=== PATIENT | male | born 1955 | race Caucasian/White ===

== ENCOUNTER 2017-02-19 13:03 | Inpatient (IN) | payer OTHER ==
--- NOTE | 2017-02-19 20:05 | HP ---
COWS - Scale Resting Pulse: 0= [place] 80 or Below Sweatin=Flushed/Facial Moisture Restless Observation: 3= Extraneous Movement Pupil Size: 0= Normal to Room Light Bone or Joint Aches: 2= Severe Diffuse Aches Runny Nose/ Eye Tearin= Runny Nose/Eyes GI Upset > 30mins: 2= Nausea/Diarrhea Tremor Observation: 2= Slight Tremor Visible Yawning Observation: 1= 1-2x During Session Anxiety or Irritability: 2=Irritable/Anxious Goose Flesh Skin: 3=Piloerection COWS Score: 19 Admission ROS S - HPI Chief Complaint: WITHDRAWAL SYMPTOMS Allergies/Adverse Reactions: Allergies Allergy/AdvReac Type Severity Reaction Status Date / Time No Known Allergies Allergy Verified 07/31/16 17:37 History of Present Illness: 61 Y.O. MAN WITH AN EXTENSIVE HISTORY OF OPIOID DEPENDENCE IS HERE SEEKING DETOX. HE HAS BEEN IN [facility] PREVIOUSL[facility] FOR DETOX AND REHAB AND HE WAS LAST HERE IN 10/2016 BUT LEFT AMA. Exam Limitations: No Limitations - Ebola screening Have you traveled outside of the country in the last 21 days: No Have you had contact with anyone from an Ebola affected area: No Have you been sick,other than usual withdrawal symptoms: No - Review of Systems Constitutional: Chills, Diaphoresis, Loss of Appetite, Malaise, Night Sweats, Unintentional Wgt. Loss EENT: reports: Blurred Vision, Tearing, Nose Congestion Respiratory: reports: No Symptoms reported Cardiac: reports: No Symptoms Reported GI: reports: Diarrhea, Nausea, Poor Appetite : reports: No Symptoms Reported Musculoskeletal: reports: Back Pain Integumentary: reports: No Symptoms Reported Neuro: reports: Tremors Endocrine: reports: No Symptoms Reported Hematology: reports: No Symptoms Reported Psychiatric: reports: Orientated x3, Depressed Other Systems: Reviewed and Negative Patient History - Patient Medical History Hx Anemia: Yes Hx Asthma: Yes (ON MDI) Hx Chronic Obstructive Pulmonary Disease (COPD): Yes Hx Cancer: No Hx Cardiac Disorders: No Hx Congestive Heart Failure: No Hx Hypertension: No Hx Hypercholesterolemia: No Hx Pacemaker: No HX Cerebrovascular Accident: No Hx Seizures: No Hx Dementia: No Hx Diabetes: No Hx Gastrointestinal Disorders: No Hx Liver Disease: No Hx Genitourinary Disorders: No Hx Sexually Transmitted Disorders: No Hx Renal Disease (ESRD): No Hx Thyroid Disease: No Hx Human Immunodeficiency Virus (HIV): No (NEGATIVE HX) Hx Hepatitis C: Yes ([place] BUT "I THINK IT CAME BACK".) Hx Depression: Yes Hx Suicide Attempt: No Hx Bipolar Disorder: No Hx Schizophrenia: No - Patient Surgical History Past Surgical History: No Hx Neurologic Surgery: No Hx Cataract Extraction: No Hx Cardiac Surgery: No Hx Lung Surgery: No Hx Breast Surgery: No Hx Breast Biopsy: No Hx Abdominal Surgery: No Hx Appendectomy: No Hx Cholecystectomy: No Hx Genitourinary Surgery: No Hx Section: No Hx Orthopedic Surgery: No Anesthesia Reaction: No - PPD History Previous Implant?: Yes Documented Results: Negative w/proof Implanted On Prior [facility] Admission?: Yes Date: 05/02/16 Results: 0 MM PPD to be Administered?: No - Reproductive History Patient is a Female of Child Bearing Age (11 -55 yrs old): No - Smoking Cessation Smoking history: Current every day smoker Have you smoked in the past 12 months: Yes Aproximately how many cigarettes per day: 5 Cigars Per Day: 0 Hx Chewing Tobacco Use: No Initiated information on smoking cessation: Yes 'Breaking Loose' booklet given: 02/19/17 - Substance & Tx. History Hx Alcohol Use: No Hx Substance Use: Yes Substance Use Type: Heroin Hx Substance Use Treatment: Yes - Substances Abused Heroin Route: Injection Frequency: Daily Amount used: 1 BUNDLE Age of first use: 13 Date of Last Use: 02/18/17 Family Disease History - Family Disease History Family Disease History: Heart Disease: Father (STROKE ), CA: Mother ( LUNG ), Sister (LEUKEMIA ) Admission Physical Exam S - Vital Signs Vital Signs: Vital Signs - 24 hr 02/19/17 18:28 Temperature 97.0 F L Pulse Rate 68 Respiratory 20 Rate Blood Pressure 146/73 - Physical General Appearance: Yes: Disheveled, Thin, Tremorous, Anxious HEENTM: Yes: Hearing grossly Normal, Normocephalic, Normal Voice Respiratory: Yes: Lungs Clear, Normal Breath Sounds, No Respiratory Distress, No Accessory Muscle Use Breast: Yes: Breast Exam Deferred Cardiology: Yes: Regular Rate Abdominal: Yes: Flat, Soft Genitourinary: Yes: Other (NO COMPLAINTS REPORTED) Back: Yes: Normal Inspection Musculoskeletal: Yes: Back pain Extremities: Yes: Tremors Neurological: Yes: barrel cap setter II-XII NML intact, Fully Oriented, Alert, Normal Mood/ Affect, Normal Response Integumentary: Yes: Track French Lymphatic: Yes: Within Normal Limits - Diagnostic (1) COPD (chronic obstructive pulmonary disease) Current Visit: Yes Status: Chronic Qualifiers: COPD type: emphysema Emphysema type: panlobular Qualified Code(s ): J43.1 - Panlobular emphysema (2) Hepatitis C Current Visit: Yes Status: Chronic Qualifiers: Viral hepatitis chronicity: chronic Hepatic coma status: without hepatic coma (3) History of asthma Current Visit: Yes Status: Chronic (4) Opioid dependence with withdrawal Current Visit: Yes Status: Chronic (5) Weight loss Current Visit: Yes Status: Suspected Cleared for Admission S - Detox or Rehab [facility] Level of Care: Medically Managed Detox Regimen/Protocol: Methadone BHS Breath Alcohol Content Breath Alcohol Content: 0 Urine Drug Screen - Results Drug Screen Negative: No Urine Drug Screen Results: OPI-Opiates, BZO-Benzodiazepines
[2017-02-19] MEDS ORDERED: LOPERAMIDE HCL 2 MG CAPSULE PO PRN (20:18)
[2017-02-19] MEDS ORDERED: MAGNESIUM HYDROX 2400MG/30ML ORAL SUSPENSION 30 ML CUP PO PRN (20:18)
[2017-02-19] MEDS ORDERED: ACETAMINOPHEN 325 MG TABLET (FP) PO PRN (20:18)
[2017-02-19] MEDS ORDERED: MENTHOL/PHENOL 1 EACH UD MM PRN (20:18)
[2017-02-19] MEDS ORDERED: MAGNESIUM CITRATE 300 ML BOTTLE PO PRN (20:18)
[2017-02-19] MEDS ORDERED: guaiFENesin/D-METHORPHAN HB 10 ML UNIT-DOSE CUPS PO PRN (20:18)
[2017-02-19] MEDS ORDERED: P-EPHED 60MG/TRIPROLIDI 2.5MG TABLET PO PRN (20:18)
[2017-02-19] MEDS ORDERED: IBUPROFEN 400 MG TABLET (FP) PO PRN (20:18)
[2017-02-19] MEDS ORDERED: MAG HYDROX/AL HYDROX/SIMETH 30 ML UNIT-DOSE CUP PO PRN (20:18)
[2017-02-19] MEDS ORDERED: hydrOXYzine PAMOATE 50 MG CAPSULE (FP) PO PRN (20:18)
[2017-02-19] MEDS ORDERED: METHADONE HCL 10 MG TABLET (FOR DETOX USE ONLY) PO ONE ×2 (20:18→23:00)
[2017-02-19] MEDS ORDERED: ALBUTEROL SO4 6.7 GM HFA INHALER IH PRN (20:19)
[2017-02-19] MEDS ORDERED: METHADONE HCL 10 MG TABLET (FOR DETOX USE ONLY) ONE (22:34)
[2017-02-19] MEDS: diazePAM 5 MG TABLET PO PRN (22:44)
[2017-02-19] MEDS: THIAMINE HCL 100 MG TABLET (FP) PO SCH (22:48)
[2017-02-19 23:04] LABS: URINE APPEARANCE CLEAR; URINE BILIRUBIN NEGATIVE (NEGATIVE); URINE BLOOD NEGATIVE (NEGATIVE); URINE COLOR AMBER; URINE GLUCOSE (UA) NEGATIVE (NEGATIVE); URINE KETONE TRACE (NEGATIVE); URINE LEUK ESTERASE NEGATIVE (NEGATIVE); URINE NITRITE NEGATIVE (NEGATIVE); URINE UROBILINOGEN 2.0 E.U/dl E.U./dl (0.2-1.0)
[2017-02-19 23:07] LABS: URINE PROTEIN 1+ (NEGATIVE)
[2017-02-19 23:10] LABS: URINE MUCUS RARE; URINE RBC 8 /hpf (0-3); URINE WBC <1 /hpf (3-5)
[2017-02-20] MEDS: diazePAM 5 MG TABLET PO PRN ×6 (02:51→23:36)
[2017-02-20] MEDS ORDERED: METHADONE HCL 10 MG TABLET (FOR DETOX USE ONLY) PO ONE (10:00)
[2017-02-20] MEDS: PRENATAL VITAMINS W/ FOLIC ACID TABLET (FP) PO SCH (10:14)
[2017-02-20] MEDS: NICOTINE 14 MG/24 HOURS TOPICAL PATCH TD SCH (10:15)
[2017-02-20] MEDS: NICOTINE POLACRILEX 2 MG GUM BC PRN (10:17)
[2017-02-20 10:28] LABS: MCH 28.8 pg (25.7-33.7); MCHC 33.8 g/dl (32.0-35.9); MEAN CELL VOLUME 85.2 fl (80-96); MEAN PLT VOLUME 7.7 fl (7.5-11.1); PLATELET COUNT 278 K/MM3 (134-434); WHITE BLOOD COUNT 7.4 K/mm3 (4.0-10.0)
[2017-02-20 10:50] LABS: ALBUMIN 4.2 g/dl (3.4-5.0); ALK PHOS 96 U/L (45-117); ANION GAP 12 (8-16); BILIRUBIN,TOTAL 1.2 mg/dL (0.2-1.0); CALCIUM 9.4 mg/dL (8.5-10.1); CO2 27 mmol/L (21-32); COCKROFT - GAULT 85.1; CREATININE 0.9 mg/dL (0.7-1.3); GLUCOSE,RANDOM 96 mg/dL (74-106); SGOT/AST 21 U/L (15-37); SGPT/ALT 17 U/L (12-78); TOT PROT 8.1 g/dl (6.4-8.2)
[2017-02-20] MEDS: ACLIDINIUM BROMIDE 400 MCG/INH AERO.POWD IH SCH ×2 (12:00→22:12)
[2017-02-20] MEDS: CYCLOBENZAPRINE HCL 10 MG TABLET (FP) PO PRN ×2 (15:07→23:36)
[2017-02-20] MEDS ORDERED: POTASSIUM CHLORIDE TABS 20 MEQ TABLET.ER (FP) PO ONE (16:03)
--- NOTE | 2017-02-20 16:03 | PN ---
BHS COWS - Scale Resting Pulse: 1= [place] 81-100 Sweatin=Flushed/Facial Moisture Restless Observation: 1= Difficult to Sit Still Pupil Size: 0= Normal to Room Light Bone or Joint Aches: 2= Severe Diffuse Aches Runny Nose/ Eye Tearin= Nasal Congestion GI Upset > 30mins: 3= Vomiting/Diarrhea Tremor Observation of Outstretched Hands: 2= Slight Tremor Visible Yawning Observation: 1= 1-2x During Session Anxiety or Irritability: 2=Irritable/Anxious Goose Flesh Skin: 0=Smooth Skin COWS Score: 15 BHS Progress Note (SOAP) Subjective: Back Ache, Body aches, Sweating, Hot / Cold Sensations, Vomiting, Diarrhea. Objective: PT. A & O X 3, OBSERVED AMBULATING ON UNIT. PT. DENIES CHEST PAIN. 02/20/17 16:01 Vital Signs Temperature 97.2 F L 02/20/17 13:23 Pulse Rate 77 02/20/17 13:23 Respiratory Rate 18 02/20/17 13:23 Blood Pressure 116/68 02/20/17 13:23 O2 Sat by Pulse Oximetry (%) Laboratory Last Values WBC 7.4 K/mm3 (4.0-10.0) D 02/20/17 07:40 RBC 5.07 M/mm3 (4.00-5.60) 02/20/17 07:40 Hgb 14.6 GM/dL (11.7-16.9) D 02/20/17 07:40 Hct 43.2 % (35.4-49) 02/20/17 07:40 MCV 85.2 fl (80-96) 02/20/17 07:40 MCHC 33.8 g/dl (32.0-35.9) 02/20/17 07:40 RDW 14.0 % (11.9-15.9) 02/20/17 07:40 Plt Count 278 K/MM3 (134-434) 02/20/17 07:40 MPV 7.7 fl (7.5-11.1) 02/20/17 07:40 Sodium 138 mmol/L (136-145) 02/20/17 07:40 Potassium 3.3 mmol/L (3.5-5.1) L 02/20/17 07:40 Chloride 99 mmol/L (98-107) 02/20/17 07:40 Carbon Dioxide 27 mmol/L (21-32) 02/20/17 07:40 Anion Gap 12 (8-16) 02/20/17 07:40 BUN 16 mg/dL (7-18) 02/20/17 07:40 Creatinine 0.9 mg/dL (0.7-1.3) D 02/20/17 07:40 Creat Clearance w eGFR > 60 (>60) 02/20/17 07:40 Random Glucose 96 mg/dL (74-106) 02/20/17 07:40 Calcium 9.4 mg/dL (8.5-10.1) 02/20/17 07:40 Total Bilirubin 1.2 mg/dL (0.2-1.0) H D 02/20/17 07:40 AST 21 U/L (15-37) D 02/20/17 07:40 ALT 17 U/L (12-78) D 02/20/17 07:40 Alkaline Phosphatase 96 U/L (45-117) D 02/20/17 07:40 Total Protein 8.1 g/dl (6.4-8.2) D 02/20/17 07:40 Albumin 4.2 g/dl (3.4-5.0) D 02/20/17 07:40 Urine Color Arin 02/19/17 22:07 Urine Appearance Clear 02/19/17 22:07 Urine pH 5.0 (5.0-8.0) 02/19/17 22:07 Urine Protein 1+ (NEGATIVE) H 02/19/17 22:07 Urine Glucose (UA) Negative (NEGATIVE) 02/19/17 22:07 Urine Ketones Trace (NEGATIVE) H 02/19/17 22:07 Urine Blood Negative (NEGATIVE) 02/19/17 22:07 Urine Nitrite Negative (NEGATIVE) 02/19/17 22:07 Urine Bilirubin Negative (NEGATIVE) 02/19/17 22:07 Urine Urobilinogen 2.0 e.u/dl E.U./dl (0.2-1.0) 02/19/17 22:07 Ur Leukocyte Esterase Negative (NEGATIVE) 02/19/17 22:07 Urine RBC 8 /hpf (0-3) 02/19/17 22:07 Urine WBC <1 /hpf (3-5) 02/19/17 22:07 Urine Mucus Rare 02/19/17 22:07 RPR Titer Nonreactive (NONREACTIVE) 02/20/17 07:40 LABS NOTED. Assessment: 02/20/17 16:02 WITHDRAWAL SYMPTOMS. 02/20/17 16:04 Plan: CONTINUE DETOX. K, 20 LOYD X 1 NOW AND THEN 20 MEQ BID AFTER. ADVISED PATIENT TO FOLLOW-UP WITH FEATHER [facility]ER AFTER DISCHARGE FROM DETOX FOR GENERAL MEDICAL ASSESSMENT AND FOR ABNORMAL ADMISSION LAB VALUES.
--- NOTE | 2017-02-20 16:37 | CONSULT ---
[facility] Psychiatric Consult - Data Date of interview: 02/20/17 Admission source: [facility] Identifying data: This is one of the multiple admissions to [facility] for this 61 y/o male seeking detox treatment on for heroin dependence.Patient is ,a father of six,domiciled,unemployed and supported on [facility] benefits. Substance Abuse History: - Smoking Cessation. Smoking history: Current every day smoker. Have you smoked in the past 12 months: Yes. Aproximately how many cigarettes per day: 5. Cigars Per Day: 0. Hx Chewing Tobacco Use: No. Initiated information on smoking cessation: Yes. 'Breaking Loose' booklet given : 02/19/17. - Substance & Tx. History. Hx Alcohol Use: No. Hx Substance Use: Yes. Substance Use Type: Heroin. Hx Substance Use Treatment: Yes. - Substances Abused. Heroin. Route: Injection. Frequency: Daily. Amount used: 1 BUNDLE. Age of first use: 13. Date of Last Use: 02/18/17. Confirmed by patient. Medical History: Emphysema,COPD,hepatitis C,anemia and bronchial asthma. Psychiatric History: Patient denies history of psychiaric hospitalizations.He does,however,report periods of outpatient psychiatric care in the past and previous treatment with various agents (prozac,seroquel,zoloft,remeron,doxepin) .Mr Craig denies having OPD follow up care at this time.Stopped taking medications a couple of months ago.Patient endorses chronic insomnia and he requests to be placed back on seroquel 100 mg at bedtime.No reported history of suicide attempts. Physical/Sexual Abuse/Trauma History: Patient denies history of sexual abuse.Coping fairly with spouse's . Additional Comment: Urine Drug Screen Results: OPI-Opiates, BZO- Benzodiazepines.Noted. Mental Status Exam - Mental Status Exam Alert and Oriented to: Time, Place, Person Cognitive Function: Grossly Intact Patient Appearance: Unkempt (tall stature,thin habitus), Disheveled Mood: Nervous, Withdrawn, Anxious Affect: Constricted Patient Behavior: Fatigued, Appropriate, Cooperative Speech Pattern: Clear Voice Loudness: Normal Thought Process: Goal Oriented Thought Disorder: Not Present Hallucinations: Denies Suicidal Ideation: Denies Homicidal Ideation: Denies Insight/Judgement: Poor Sleep: Poorly, Difficulty falling asleep Appetite: Fair, Weight loss Muscle strength/Tone: Normal Gait/Station: Normal Psychiatric Findings - Problem List ([place] 1, 2,3) (1) Opioid dependence with withdrawal Current Visit: Yes Status: Acute (2) Nicotine dependence Current Visit: Yes Status: Acute Qualifiers: Nicotine product type: cigarettes Substance use status: uncomplicated Qualified Code(s): F17.210 - Nicotine dependence, cigarettes, uncomplicated (3) Substance induced mood disorder Current Visit: Yes Status: Acute (4) Hepatitis C Current Visit: Yes Status: Chronic Qualifiers: Viral hepatitis chronicity: chronic Hepatic coma status: without hepatic coma (5) History of asthma Current Visit: Yes Status: Chronic (6) Weight loss Current Visit: Yes Status: Chronic (7) History of anemia Current Visit: Yes Status: Suspected (8) COPD (chronic obstructive pulmonary disease) Current Visit: Yes Status: Chronic Qualifiers: COPD type: emphysema Emphysema type: panlobular Qualified Code(s ): J43.1 - Panlobular emphysema (9) Insomnia Current Visit: Yes Status: Acute - Initial Treatment Plan Initial Treatment Plan: Psychoeducation.Detoxification.Seroquel 100 mg po hs.Side effects/benefits discussed with patient.He,himself,selected the dose of 100 mg of seroquel at bedtime.Observation.
[2017-02-20] MEDS: THIAMINE HCL 100 MG TABLET (FP) PO SCH (22:10)
[2017-02-20] MEDS: POTASSIUM CHLORIDE TABS 20 MEQ TABLET.ER (FP) PO SCH (22:11)
[2017-02-20] MEDS: QUEtiapine FUMARATE 100 MG TABLET (FP) PO SCH (22:11)
[2017-02-21] MEDS: diazePAM 5 MG TABLET PO PRN ×5 (03:49→22:14)
[2017-02-21] MEDS: CYCLOBENZAPRINE HCL 10 MG TABLET (FP) PO PRN ×2 (05:12→22:14)
[2017-02-21] MEDS ORDERED: METHADONE HCL 5 MG TABLET (FOR DETOX USE ONLY) PO ONE (10:00)
[2017-02-21] MEDS: NICOTINE 14 MG/24 HOURS TOPICAL PATCH TD SCH (10:06)
[2017-02-21] MEDS: PRENATAL VITAMINS W/ FOLIC ACID TABLET (FP) PO SCH (10:06)
[2017-02-21] MEDS: POTASSIUM CHLORIDE TABS 20 MEQ TABLET.ER (FP) PO SCH ×2 (10:06→22:12)
[2017-02-21] MEDS: ACLIDINIUM BROMIDE 400 MCG/INH AERO.POWD IH SCH ×2 (10:07→22:12)
[2017-02-21] MEDS: NICOTINE POLACRILEX 2 MG GUM BC PRN (10:08)
--- NOTE | 2017-02-21 17:28 | PN ---
BHS COWS - Scale Resting Pulse: 1= [place] 81-100 Sweatin= Chills/Flushing Restless Observation: 1= Difficult to Sit Still Pupil Size: 0= Normal to Room Light Bone or Joint Aches: 2= Severe Diffuse Aches Runny Nose/ Eye Tearin= Nasal Congestion GI Upset > 30mins: 2= Nausea/Diarrhea Tremor Observation of Outstretched Hands: 2= Slight Tremor Visible Yawning Observation: 1= 1-2x During Session Anxiety or Irritability: 2=Irritable/Anxious Goose Flesh Skin: 3=Piloerection COWS Score: 16 BHS Progress Note (SOAP) Subjective: Diarrhea, Interrupted Sleep, Hot / Cold sensations, Sweating, Body Aches, Tremors. Objective: PT. A & O X 3, OBSERVED AMBULATING ON UNIT. 02/21/17 17:26 Vital Signs Temperature 97.1 F L 02/21/17 13:33 Pulse Rate 87 02/21/17 13:33 Respiratory Rate 18 02/21/17 13:33 Blood Pressure 126/78 02/21/17 13:33 O2 Sat by Pulse Oximetry (%) Laboratory Last Values WBC 7.4 K/mm3 (4.0-10.0) D 02/20/17 07:40 RBC 5.07 M/mm3 (4.00-5.60) 02/20/17 07:40 Hgb 14.6 GM/dL (11.7-16.9) D 02/20/17 07:40 Hct 43.2 % (35.4-49) 02/20/17 07:40 MCV 85.2 fl (80-96) 02/20/17 07:40 MCHC 33.8 g/dl (32.0-35.9) 02/20/17 07:40 RDW 14.0 % (11.9-15.9) 02/20/17 07:40 Plt Count 278 K/MM3 (134-434) 02/20/17 07:40 MPV 7.7 fl (7.5-11.1) 02/20/17 07:40 Sodium 138 mmol/L (136-145) 02/20/17 07:40 Potassium 3.3 mmol/L (3.5-5.1) L 02/20/17 07:40 Chloride 99 mmol/L (98-107) 02/20/17 07:40 Carbon Dioxide 27 mmol/L (21-32) 02/20/17 07:40 Anion Gap 12 (8-16) 02/20/17 07:40 BUN 16 mg/dL (7-18) 02/20/17 07:40 Creatinine 0.9 mg/dL (0.7-1.3) D 02/20/17 07:40 Creat Clearance w eGFR > 60 (>60) 02/20/17 07:40 Random Glucose 96 mg/dL (74-106) 02/20/17 07:40 Calcium 9.4 mg/dL (8.5-10.1) 02/20/17 07:40 Total Bilirubin 1.2 mg/dL (0.2-1.0) H D 02/20/17 07:40 AST 21 U/L (15-37) D 02/20/17 07:40 ALT 17 U/L (12-78) D 02/20/17 07:40 Alkaline Phosphatase 96 U/L (45-117) D 02/20/17 07:40 Total Protein 8.1 g/dl (6.4-8.2) D 02/20/17 07:40 Albumin 4.2 g/dl (3.4-5.0) D 02/20/17 07:40 Urine Color Arin 02/19/17 22:07 Urine Appearance Clear 02/19/17 22:07 Urine pH 5.0 (5.0-8.0) 02/19/17 22:07 Ur Specific [place] 1.020 (1.005-1.025) 02/19/17 22:07 Urine Protein 1+ (NEGATIVE) H 02/19/17 22:07 Urine Glucose (UA) Negative (NEGATIVE) 02/19/17 22:07 Urine Ketones Trace (NEGATIVE) H 02/19/17 22:07 Urine Blood Negative (NEGATIVE) 02/19/17 22:07 Urine Nitrite Negative (NEGATIVE) 02/19/17 22:07 Urine Bilirubin Negative (NEGATIVE) 02/19/17 22:07 Urine Urobilinogen 2.0 e.u/dl E.U./dl (0.2-1.0) 02/19/17 22:07 Ur Leukocyte Esterase Negative (NEGATIVE) 02/19/17 22:07 Urine RBC 8 /hpf (0-3) 02/19/17 22:07 Urine WBC <1 /hpf (3-5) 02/19/17 22:07 Urine Mucus Rare 02/19/17 22:07 RPR Titer Nonreactive (NONREACTIVE) 02/20/17 07:40 LABS NOTED. Assessment: 02/21/17 17:27 WITHDRAWAL SYMPTOMS. Plan: CONTINUE DETOX. ADVISED PATIENT TO FOLLOW-UP WITH ENROLLMENT CONSULTANT AFTER DISCHARGE FROM DETOX FOR GENERAL MEDICAL ASSESSMENT AND FOR ABNORMAL ADMISSION LAB VALUES.
[2017-02-21] MEDS: THIAMINE HCL 100 MG TABLET (FP) PO SCH (22:12)
[2017-02-21] MEDS: QUEtiapine FUMARATE 100 MG TABLET (FP) PO SCH (22:12)
[2017-02-21] MEDS: diphenhydrAMINE HCL 50 MG CAPSULE PO PRN (22:14)
[2017-02-22] MEDS: diazePAM 5 MG TABLET PO PRN ×5 (02:53→18:54)
[2017-02-22] MEDS ORDERED: METHADONE HCL 5 MG TABLET (FOR DETOX USE ONLY) PO ONE (10:00)
[2017-02-22] MEDS: PRENATAL VITAMINS W/ FOLIC ACID TABLET (FP) PO SCH (10:11)
[2017-02-22] MEDS: NICOTINE 14 MG/24 HOURS TOPICAL PATCH TD SCH (10:11)
[2017-02-22] MEDS: POTASSIUM CHLORIDE TABS 20 MEQ TABLET.ER (FP) PO SCH ×2 (10:11→22:13)
[2017-02-22] MEDS: ACLIDINIUM BROMIDE 400 MCG/INH AERO.POWD IH SCH ×2 (10:11→22:13)
--- NOTE | 2017-02-22 12:49 | PN ---
BHS Progress Note (SOAP) Subjective: Sweating,interrupted sleep,restless Objective: 02/22/17 12:48 Vital Signs - 8 hr 02/22/17 02/22/17 06:22 09:22 Temperature 97.1 F L 96.1 F L Pulse Rate 72 83 Respiratory 18 18 Rate Blood Pressure 126/72 119/74 Laboratory Tests 02/19/17 02/20/17 02/20/17 22:07 07:40 07:40 WBC 7.4 D RBC 5.07 Hgb 14.6 D Hct 43.2 MCV 85.2 MCHC 33.8 RDW 14.0 Plt Count 278 MPV 7.7 Sodium 138 Potassium 3.3 L Chloride 99 Carbon Dioxide 27 Anion Gap 12 BUN 16 Creatinine 0.9 D Creat Clearance w eGFR > 60 Random Glucose 96 Calcium 9.4 Total Bilirubin 1.2 H D AST 21 D ALT 17 D Alkaline Phosphatase 96 D Total Protein 8.1 D Albumin 4.2 D Urine Color Arin Urine Appearance Clear Urine pH 5.0 Ur Specific [place] 1.020 Urine Protein 1+ H Urine Glucose (UA) Negative Urine Ketones Trace H Urine Blood Negative Urine Nitrite Negative Urine Bilirubin Negative Urine Urobilinogen 2.0 e.u/dl Ur Leukocyte Esterase Negative Urine RBC 8 Urine WBC <1 Urine Mucus Rare RPR Titer 02/20/17 07:40 WBC RBC Hgb Hct MCV MCHC RDW Plt Count MPV Sodium Potassium Chloride Carbon Dioxide Anion Gap BUN Creatinine Creat Clearance w eGFR Random Glucose Calcium Total Bilirubin AST ALT Alkaline Phosphatase Total Protein Albumin Urine Color Urine Appearance Urine pH Ur Specific [place] Urine Protein Urine Glucose (UA) Urine Ketones Urine Blood Urine Nitrite Urine Bilirubin Urine Urobilinogen Ur Leukocyte Esterase Urine RBC Urine WBC Urine Mucus RPR Titer Nonreactive labs noted Assessment: 02/22/17 12:49 Withdrawal sx. Hypokalemia Plan: Continue detox continue k-dur
--- NOTE | 2017-02-22 13:05 | EKG ---
Test Reason : Blood Pressure : / mmHG Vent. Rate : 077 BPM Atrial Rate : 077 BPM P-R Int : 140 ms QRS Dur : 086 ms QT Int : 398 ms P-R-T Axes : 082 083 070 degrees QTc Int : 450 ms NORMAL SINUS RHYTHM POSSIBLE LEFT ATRIAL ENLARGEMENT BORDERLINE ECG NO PREVIOUS ECGS AVAILABLE Confirmed by POLINA WITT, JOSE RAMON ([id number]) on 02/22/2017 1:05:01 PM Referred By: Confirmed By:JOSE RAMON FISH MD
[2017-02-22] MEDS: CYCLOBENZAPRINE HCL 10 MG TABLET (FP) PO PRN (14:43)
[2017-02-22] MEDS: THIAMINE HCL 100 MG TABLET (FP) PO SCH (22:13)
[2017-02-22] MEDS: diphenhydrAMINE HCL 50 MG CAPSULE PO PRN (22:13)
[2017-02-22] MEDS: QUEtiapine FUMARATE 100 MG TABLET (FP) PO SCH (22:13)
[2017-02-23] MEDS ORDERED: METHADONE HCL 10 MG TABLET (FOR DETOX USE ONLY) PO ONE (10:00)
[2017-02-23] MEDS: ACLIDINIUM BROMIDE 400 MCG/INH AERO.POWD IH SCH ×2 (10:18→22:07)
[2017-02-23] MEDS: POTASSIUM CHLORIDE TABS 20 MEQ TABLET.ER (FP) PO SCH ×2 (10:18→22:07)
[2017-02-23] MEDS: PRENATAL VITAMINS W/ FOLIC ACID TABLET (FP) PO SCH (10:18)
[2017-02-23] MEDS: NICOTINE 14 MG/24 HOURS TOPICAL PATCH TD SCH (10:20)
--- NOTE | 2017-02-23 11:36 | PN ---
BHS Progress Note (SOAP) Subjective: ANXIETY,IRRITABILITY,FATIGUE. Objective: 02/23/17 11:36 Vital Signs Temperature 97.2 F L 02/23/17 10:23 Pulse Rate 85 02/23/17 10:23 Respiratory Rate 18 02/23/17 10:23 Blood Pressure 108/68 02/23/17 10:23 O2 Sat by Pulse Oximetry (%) Assessment: 02/23/17 11:36 WITHDRAWAL SX Plan: CONTINUE DETOX
[2017-02-23] MEDS: diphenhydrAMINE HCL 50 MG CAPSULE PO PRN (22:07)
[2017-02-23] MEDS: THIAMINE HCL 100 MG TABLET (FP) PO SCH (22:07)
[2017-02-23] MEDS: QUEtiapine FUMARATE 100 MG TABLET (FP) PO SCH (22:07)
[2017-02-24] MEDS ORDERED: METHADONE HCL 5 MG TABLET (FOR DETOX USE ONLY) PO ONE (06:00)
[2017-02-24 06:35] VITALS: BP 127/73; PULSE 68; TEMP 98
--- NOTE | 2017-02-24 08:29 | PN ---
S Progress Note (SOAP) Subjective: ALERT,NO COMPLAINT Objective: 02/24/17 08:28 Vital Signs Temperature 98.0 F 02/24/17 06:35 Pulse Rate 68 02/24/17 06:35 Respiratory Rate 18 02/24/17 06:35 Blood Pressure 127/73 02/24/17 06:35 O2 Sat by Pulse Oximetry (%) Assessment: 02/24/17 08:28 DETOX COMPLETED,NO WITHDRAWAL SYMPTOM Plan: DISCHARGE TODAY,FOLLOW UP WITH AFTER CARE PROGRAM ARRANGEMENT
--- NOTE | 2017-02-24 08:33 | DS ---
[facility] Detox Discharge Summary Admission Date: 02/19/17 Discharge Date: 02/24/17 - History Present History: Opioid Dependence Additional Comments: FOLLOW UP WITH AFTER [facility] PROGRAM ARRANGEMENT AND PMD FOR MEDICAL PROBLEM Pertinent Past History: ASTHMA HEPATITIS C WEIGHT LOSS COPD - Physical Exam Results Vital Signs: Vital Signs Temperature 98.0 F 02/24/17 06:35 Pulse Rate 68 02/24/17 06:35 Respiratory Rate 18 02/24/17 06:35 Blood Pressure 127/73 02/24/17 06:35 O2 Sat by Pulse Oximetry (%) Pertinent Admission Physical Exam Findings: WITHDRAWAL SYMPTOM - Treatment Hospital Course: Detox Protocol Followed, Detoxed Safely, Responded well, Discharged Condition Good, Rehab Referral Accepted Patient has Accepted a Rehab Referral to: [facility] - Medication Discharge Medications: Ambulatory Orders Albuterol Sulfate Inhaler - [Ventolin HFA Inhaler -] 1 - 2 inh PO QID PRN #1 inhaler 08/03/16 Fluticasone/Salmeterol [Advair 250-50 Diskus] 1 inh PO BID #1 disk.w.dev Ranitidine [Zantac -] 150 mg PO BID #60 tablet 08/03/16 Tiotropium [place] [Spiriva] 1 inh PO DAILY #1 inh 08/03/16 Quetiapine Fumarate [Seroquel -] 100 mg PO HS 02/19/17 Quetiapine Fumarate [Seroquel] 100 mg PO HS #30 tablet 02/20/17 - AMA Did Patient Leave Against Medical Advice: No
== END 2017-02-24 07:10 | disposition home or self-care (01) | DRG 897 ==
LOC: YASAS 13:03 → Y3N 20:47
PROVIDERS: ADMIT Internal Medicine Addiction Medicine; ATTEND Internal Medicine Addiction Medicine
PROC: HZ2ZZZZ Detoxification Services for Substance Abuse Treatment (ICD-10-PCS; principal; 2017-02-24)
DX: F11.23 Opioid dependence with withdrawal (principal); F17.210 Nicotine dependence, cigarettes, uncomplicated; F19.24 Other psychoactive substance dependence with psychoactive substance-induced mood disorder; F32.9 Major depressive disorder, single episode, unspecified; G47.00 Insomnia, unspecified; J43.1 Panlobular emphysema; B18.2 Chronic viral hepatitis C; R63.4 Abnormal weight loss; Z68.20 Body mass index [BMI] 20.0-20.9, adult
CPT/HCPCS: 36415; 80053; 81003; 81015; 85027; 86593; 93005; 93010